=== PATIENT | male | born 1995 | race Caucasian/White ===

== ENCOUNTER 2021-09-11 19:53 | Inpatient (IN) | payer MEDICAID ==
[~2021-09-11] VITALS: Ht 175.3 cm; Wt 81.0 kg
[2021-09-11] MEDS ORDERED: SERO400T PO (20:01)
[2021-09-11] MEDS ORDERED: NS 1,000 ML IV ONE (20:25)
[2021-09-11 20:30] LABS: BASO % 0.6 % (0.0-1.0); EOS # 0.1 10^3/uL (0.0-0.5); EOS % 2.4 % (0.0-3.0); HEMATOCRIT 43.8 % (42.0-52.0); HEMOGLOBIN 15.3 g/dl (13.5-17.5); LYMPH # 1.4 10^3/uL (1.5-5.0); LYMPH % 26.5 % (24.0-44.0); MEAN CORPUSCULAR HEMOGLOBIN 32.2 pg (27.0-33.0); MEAN CORPUSCULAR HGB CONC 34.9 g/dl (32.0-36.5); MEAN CORPUSCULAR VOLUME 92.2 fl (80.0-96.0); MONO # 0.6 10^3/uL (0.0-0.8); NEUTROPHILS # 3.2 10^3/uL (1.5-8.5); NEUTROPHILS % 58.8 % (36.0-66.0); PLATELET COUNT, AUTOMATED 212 10^3/uL (150-450); RED BLOOD COUNT 4.75 10^6/uL (4.30-6.10); WHITE BLOOD COUNT 5.4 10^3/uL (4.0-10.0)
[2021-09-11 20:58] LABS: ALBUMIN 3.6 GM/DL (3.2-5.2); ALT/SGPT 33 U/L (12-78); BILIRUBIN,DIRECT 0.2 MG/DL (0.0-0.2); BILIRUBIN,TOTAL 0.2 MG/DL (0.2-1.0); BLOOD UREA NITROGEN 12 MG/DL (7-18); CALCIUM LEVEL 8.5 MG/DL (8.5-10.1); CARBON DIOXIDE LEVEL 27 MEQ/L (21-32); CHLORIDE LEVEL 106 MEQ/L (98-107); CREATININE FOR GFR 0.84 MG/DL (0.70-1.30); ETHYL ALCOHOL (ETHANOL) 0.004 % (0.000-0.010); GLOMERULAR FILTRATION RATE > 60.0 (>60); GLUCOSE, FASTING 87 MG/DL (70-100); POTASSIUM SERUM 3.9 MEQ/L (3.5-5.1); SALICYLATE LEVEL < 1.7 MG/DL (5.0-30.0); SODIUM LEVEL 142 MEQ/L (136-145); TOTAL PROTEIN 6.8 GM/DL (6.4-8.2)
[2021-09-11 20:59] LABS: AMPHETAMINES LEVEL URINE NEGATIVE (NEGATIVE); BARBITURATES URINE NEGATIVE (NEGATIVE); BENZODIAZEPINES URINE NEGATIVE (NEGATIVE); CANNABINOIDS URINE NEGATIVE (NEGATIVE); COCAINE METABOLITE URINE NEGATIVE (NEGATIVE); METHADONE URINE NEGATIVE (NEGATIVE); OPIATES URINE NEGATIVE (NEGATIVE); PHENCYCLIDINE URINE NEGATIVE (NEGATIVE)
[2021-09-11 21:08] LABS: RSV AMPLIFICATION NEGATIVE (NEGATIVE)
[2021-09-11 23:10] LABS: ACETAMINOPHEN LEVEL < 2.0 UG/ML (0.0-30.0)
[2021-09-12] MEDS ORDERED: QUET100T2 PO (11:56)
[2021-09-12] MEDS ORDERED: SERT50TA29 PO (11:56)
[2021-09-12] MEDS ORDERED: HOME MED LIST COMPLETE! XX SCH (12:00)
[2021-09-12] MEDS ORDERED: diphenhydrAMINE 25MG CAP PO PRN (14:00)
[2021-09-12] MEDS ORDERED: MOM 30ML SUSPENSION UDC PO PRN (14:00)
[2021-09-12] MEDS ORDERED: IBUPROFEN 400MG TAB PO PRN (14:00)
[2021-09-12] MEDS ORDERED: MAALOX 30 ML SUSP *UDC PO PRN (14:00)
[2021-09-12] MEDS ORDERED: traZODone 50 MG TAB PO PRN (14:00)
[2021-09-12] MEDS ORDERED: OLANZapine ORAL DISINTEGRATING TAB 5MG PO PRN (14:00)
[2021-09-12 16:37] VITALS: BP 128/80
[2021-09-12] MEDS: NICOTINE 21MG/24HR 1 EA TRANSDERMAL TD SCH (18:49)
[2021-09-12] MEDS: QUEtiapine FUMARATE 200 MG TAB PO SCH (20:11)
[2021-09-13 06:42] VITALS: BP 135/80
[2021-09-13] MEDS: SERTRALINE HCL 50 MG TAB PO SCH (08:11)
[2021-09-13] MEDS: NICOTINE 21MG/24HR 1 EA TRANSDERMAL TD SCH (08:13)
[2021-09-13] MEDS ORDERED: IBUPROFEN 600MG TAB PO ONE (11:25)
[2021-09-13] MEDS: POLYSPORIN TOPICAL OINTMENT 15GM TOP SCH ×2 (13:23→21:00)
[2021-09-13 17:16] VITALS: BP 137/79
[2021-09-13] MEDS: QUEtiapine FUMARATE 200 MG TAB PO SCH (21:37)
[2021-09-14 06:30] VITALS: BP 121/58
[2021-09-14] MEDS: SERTRALINE HCL 50 MG TAB PO SCH (08:08)
[2021-09-14] MEDS: NICOTINE 21MG/24HR 1 EA TRANSDERMAL TD SCH (08:09)
[2021-09-14] MEDS: POLYSPORIN TOPICAL OINTMENT 15GM TOP SCH (08:10)
[2021-09-14] MEDS ORDERED: SERT50TA29 PO (08:20)
[2021-09-14] MEDS ORDERED: QUET200T2 PO (08:20)
== END 2021-09-14 11:49 | disposition home or self-care (01) | DRG 754 ==
LOC: M ED 19:53 → EDBD 19:53 → M ED INP 09-12 13:58 → M PSY 09-12 16:33
PROVIDERS: ADMIT Psychiatry & Neurology Psychiatry; ATTEND Psychiatry & Neurology Psychiatry
DX: F32.A Depression, unspecified (principal); F31.9 Bipolar disorder, unspecified; J45.909 Unspecified asthma, uncomplicated; S51.802A Unspecified open wound of left forearm, initial encounter; X78.0XXA Intentional self-harm by sharp glass, initial encounter; Y92.009 Unspecified place in unspecified non-institutional (private) residence as the place of occurrence of the external cause; F17.200 Nicotine dependence, unspecified, uncomplicated; Z79.899 Other long term (current) drug therapy; G47.00 Insomnia, unspecified

== ENCOUNTER 2024-07-03 07:49 | Emergency (ER) | payer OTHER, SELFPAY ==
[~2024-07-03] VITALS: Ht 180.3 cm; Wt 79.3 kg
[~2024-07-03 07:49] MED LIST: QUET100T2 PO; QUET200T2 PO; SERO400T PO; SERT50TA29 PO
[2024-07-03 07:52] VITALS: BP 119/77; TEMP 97.7; O2SAT 97
[2024-07-03] MEDS ORDERED: VENTAER INH (08:15)
== END 2024-07-03 08:34 | disposition home or self-care (01) ==
LOC: M ED 08:33
DX: Z48.02 Encounter for removal of sutures (principal); Z79.52 Long term (current) use of systemic steroids; Z79.899 Other long term (current) drug therapy